=== PATIENT | male | born 1975 | race African-American/Black ===

== ENCOUNTER 2019-09-02 09:56 | Emergency (ER) | payer OTHER ==
[~2019-09-02] VITALS: Ht 188 cm; Wt 90.7 kg
[2019-09-02 10:00] VITALS: BP 152/88
[2019-09-02] MEDS ORDERED: methylPREDNISolone SOD SUCC PF 125 MG/2 ML VIAL. IM ONE (10:15)
[2019-09-02] MEDS ORDERED: IPRATRPIUM/ALBUTEROL 0.5/2.5MG 3 ML NEBU. NEB ONE (10:15)
[2019-09-02] MEDS ORDERED: ALBUTEROL SULFATE 2.5 MG/3 ML NEBU. NEB ONE (10:15)
--- NOTE | 2019-09-02 10:15 | PHYS DOC ---
Past Medical History Past Medical History: Asthma Past Surgical History: No Surgical History Smoking: Less than 1pk/day (vapes daily) Alcohol Use: None Drug Use: None Adult General Chief Complaint Chief Complaint: ASTHMA HPI HPI Patient is a 44 year old AA male, accompanied by his spouse, who presents to the emergency Department today with complaints of asthma for the last 2 weeks. Patient states that with the weather change his asthma has been persistent. He reports increased shortness of breath since last night, he has been using his [id number]'s Pro Air inhaler with no relief in his symptoms. Patient denies any fever. He currently denies any pain, he states there is only tightness in his chest. Review of Systems Review of Systems Constitutional: Denies fever or chills [] Eyes: Denies change in visual acuity, redness, or eye pain [] HENT: Denies nasal congestion or sore throat [] Respiratory: reports wheezing and shortness of breath with non-productive cough Cardiovascular: No additional information not addressed in HPI [] GI: Denies abdominal pain, nausea, vomiting, or diarrhea [] Musculoskeletal: Denies back pain or joint pain [] Integument: Denies rash or skin lesions [] Neurologic: Denies headache, focal weakness or sensory changes [] Complete systems were reviewed and found to be within normal limits, except as documented in this note. Current Medications Current Medications Current Medications Medications (Trade) Dose Ordered Sig/Scarlet Start Time Stop Time Status Last Admin Dose Admin Albuterol Sulfate (Ventolin Neb Soln) 2.5 mg 1X ONCE 09/02/19 10:15 09/02/19 10:17 DC 09/02/19 10:26 2.5 MG Albuterol/ Ipratropium (Duoneb) 3 ml 1X ONCE 09/02/19 10:15 09/02/19 10:17 DC 09/02/19 10:26 3 ML Methylprednisolone Sodium Succinate (SOLU-Medrol 125MG VIAL) 125 mg 1X ONCE 09/02/19 10:15 09/02/19 10:17 DC 09/02/19 10:25 125 MG Allergies Allergies Allergies Coded Allergies Type Severity Reaction Last Updated Verified aspirin Allergy Unknown 11/01/14 No Physical Exam Physical Exam Constitutional: Well developed, well nourished, no acute distress, non-toxic appearance. [] HENT: Normocephalic, atraumatic, bilateral external ears normal, oropharynx moist, no oral exudates, nose normal. [] Eyes: PERRLA, EOMI, conjunctiva normal, no discharge. [] Neck: Normal range of motion, no tenderness, supple, no stridor. [] Cardiovascular:Heart rate regular rhythm, no murmur [] Lungs & Thorax: Bilateral breath sounds inspiratory and expiratory wheezes, diminished in bilateral bases, no retractions, speaking 4-5 words at a time Skin: Warm, dry, no erythema, no rash. [] Back: No tenderness Extremities: No cyanosis, no clubbing, ROM intact, no edema. [] Neurologic: Alert and oriented X 3, no focal deficits noted. [] Psychologic: Affect normal, judgement normal, mood normal. [] Current Patient Data Vital Signs Vital Signs Date Time Temp Pulse Resp B/P (MAP) Pulse Ox O2 Delivery O2 Flow Rate FiO2 09/02/19 10:27 96 Room Air 09/02/19 10:00 98.7 84 18 152/88 (109) 98.7 EKG EKG [] Radiology/Procedures Radiology/Procedures Pt was given a breathing tx in the ER . Lung sounds improved and were clear in all quan after breathing tx. [] Course & Med Decision Making Course & Med Decision Making Pertinent Labs and Imaging studies reviewed. (See chart for details) [] Dragon Disclaimer Dragon Disclaimer This electronic medical record was generated, in whole or in part, using a voice recognition dictation system. Departure Departure Impression: Primary Impression: Asthma attack Disposition: HOME, SELF-CARE Condition: STABLE Referrals: NO PCP (PCP) Patient Instructions: Asthma Prevention-Brief, Asthma, Adult, [id number] Additional Instructions: Download the Allostatix jeff on your phone. Fill the prescriptions and use as dire cted. STOP SMOKING/VAPING. Avoid airway irritants such as smoke, dust, pollen, animal dander, and fragrance. Follow up with your primary care doctor next week, return to the ER if symptoms worsen. Scripts Albuterol Sulfate (Proventil Hfa) 6.7 Gm Hfa.aer.ad 2 PUFF INH PRN Q4-6HRS PRN for SHORTNESS OF BREATH for 30 Days, #1 INHALER 1 Refill Prov: ROGER DELEON PRESIDING STEWARD 09/02/19 Prednisone (PREDNISONE) 50 Mg Tablet 1 TAB PO DAILY, #5 TAB 0 Refills begin taking on 09/03/19 Prov: ROGER DELEON APRN 09/02/19 Problem Qualifiers Primary Impression: Asthma attack Asthma severity: mild Asthma persistence: intermittent Qualified Codes: J45.21 - Mild intermittent asthma with (acute) exacerbation ROGER DELEON APRN Sep 02, 2019 10:15
[2019-09-02] MEDS ORDERED: PRED50TA PO (10:56)
[2019-09-02] MEDS ORDERED: PROVENTIL HFA6.7 G2 INH (10:56)
== END 2019-09-02 11:21 | disposition home or self-care (01) ==
LOC: ER 09:56
DX: J45.21 Mild intermittent asthma with (acute) exacerbation (principal); F17.210 Nicotine dependence, cigarettes, uncomplicated; Z88.6 Allergy status to analgesic agent
CPT/HCPCS: 94640; 99284; J2930; J7613; J7620

== ENCOUNTER 2020-07-28 18:07 | Emergency (ER) | payer OTHER ==
[~2020-07-28] VITALS: Ht 180.3 cm; Wt 100.0 kg
[~2020-07-28 18:07] MED LIST: PRED50TA PO; PROVENTIL HFA6.7 G2 INH
[2020-07-28 18:15] VITALS: BP 169/98
--- NOTE | 2020-07-28 18:33 | PHYS DOC ---
Past Medical History Past Medical History: Asthma Past Surgical History: No Surgical History Smoking Status: Current Every Day Smoker Alcohol Use: None Drug Use: None General Adult EDM: Chief Complaint: ASTHMA HPI: HPI: The history was obtained from the patient. Patient is a 45-year-old male with PMH asthma who presents with a chief complaint of wheezing and shortness of breath. Patient states he has had the symptoms since last night. He states he has been using his inhaler nightly without relief. He does note a dry cough. Denies any objective fevers. Denies chest pain or syncope. States he is never been hospitalized before for his asthma or required ventilator support or BiPAP support. Denies any recent antibiotics or steroids. States this feels similar to previous asthma exacerbations. No other complaints. Review of Systems: Review of Systems: Constitutional: Denies fever or chills. [] Eyes: Denies change in visual acuity. [] HENT: Denies nasal congestion or sore throat. [] Respiratory: Positive for cough, shortness of breath, wheezing Cardiovascular: Denies chest pain or edema. [] GI: Denies abdominal pain, nausea, vomiting, bloody stools or diarrhea. [] : Denies dysuria. [] Musculoskeletal: Denies back pain or joint pain. [] Integument: Denies rash. [] Neurologic: Denies headache, focal weakness or sensory changes. [] Endocrine: Denies polyuria or polydipsia. [] Lymphatic: Denies swollen glands. [] Psychiatric: Denies depression or anxiety. [] Heart Score: Risk Factors: Risk Factors: DM, Current or recent (<one month) smoker, HTN, HLP, family history of CAD, obesity. Risk Scores: Score 0 - 3: 2.5% MACE over next 6 weeks - Discharge Home Score 4 - 6: 20.3% MACE over next 6 weeks - Admit for Clinical Observation Score 7 - 10: 72.7% MACE over next 6 weeks - Early Invasive Strategies Allergies: Allergies: Allergies Coded Allergies Type Severity Reaction Last Updated Verified aspirin Allergy Unknown 11/01/14 No Physical Exam: PE: Constitutional: Well developed, well nourished, no acute distress, non-toxic appearance. [] HENT: Normocephalic, atraumatic, bilateral external ears normal, oropharynx moist, no oral exudates, nose normal. [] Eyes: PERRLA, EOMI, conjunctiva normal, no discharge. [] Neck: Normal range of motion, no tenderness, supple, no stridor. [] Cardiovascular:Heart rate regular rhythm, no murmur [] Lungs & Thorax: Inspiratory and expiratory wheezes noted in the bases bilaterally. Fair aeration. Mild tachypnea. No accessory muscle usage noted. Speaking in full sentences. Abdomen: soft, no tenderness, no masses, no pulsatile masses. [] Skin: Warm, dry, no erythema, no rash. [] Back: No tenderness, no CVA tenderness. [] Extremities: No tenderness, no cyanosis, no clubbing, ROM intact, no edema. [] Neurologic: Alert and oriented X 3, normal motor function, normal sensory function, no focal deficits noted. [] Psychologic: Affect normal, judgement normal, mood normal. [] Current Patient Data: Vital Signs: Vital Signs Date Time Temp Pulse Resp B/P (MAP) Pulse Ox O2 Delivery O2 Flow Rate FiO2 8/30/20 18:15 97.8 67 15 169/98 (121) 100 Room Air 97.8 Vital Signs Date Time Temp Pulse Resp B/P (MAP) Pulse Ox O2 Delivery O2 Flow Rate FiO2 8/30/20 18:15 97.8 67 15 169/98 (121) 100 Room Air 97.8 EKG: EKG: [] Radiology/Procedures: Radiology/Procedures: [] Course & Med Decision Making: Course & Med Decision Making Pertinent Labs and Imaging studies reviewed. (See chart for details) Patient is a 45-year-old male who presents with chief complaint of shortness of breath and wheezing. He notes history of asthma and states this feels similar. Physical exam noted above. Patient was given IV fluids, DuoNeb breathing treatments, and additional albuterol treatments. On reassessment patient's wheezing has resolved. He is not tachypneic. He is speaking in full sentences. He states his breathing feels back to baseline. He was ambulated and showed no signs of hypoxia. Chest x-ray will be deferred as he has no fever or clinical signs of pneumonia. I do feel he is appropriate for discharge home. Will be discharged home with inhaler and short course of steroids. Return precautions discussed and understood. Instructed to follow-up with his primary care physician in the next 2 to 3 days. Stable for discharge home. Gale Disclaimer: Gale Disclaimer: This electronic medical record was generated, in whole or in part, using a voice recognition dictation system. Departure Departure Impression: Primary Impression: Wheeze Disposition: HOME, SELF-CARE Condition: STABLE Referrals: NO PCP (PCP) Patient Instructions: Asthma, Adult Scripts Albuterol Sulfate (Proair Hfa) 8.5 Gm Hfa.aer.ad 2 PUFF IH PRN Q4-6HRS PRN for wheezing for 21 Days, #1 INHALER 0 Refills Prov: BHAVIN THAPA DO 07/28/20 Prednisone (PREDNISONE) 20 Mg Tablet 60 MG PO DAILY for 4 Days, #12 TAB Prov: BHAVIN THAPA DO 07/28/20 Justicifation of Admission Dx: Justifications for Admission: Justification of Admission Dx: N/A BHAVIN THAPA DO Jul 28, 2020 18:33
[2020-07-28] MEDS ORDERED: IV RINGERS,LACTATED 1000ML 1,000 ML IV ONE (18:45)
[2020-07-28] MEDS ORDERED: predniSONE 20 MG TABLET PO ONE (18:45)
[2020-07-28] MEDS ORDERED: IPRATRPIUM/ALBUTEROL 0.5/2.5MG 3 ML NEBU. NEB ONE (18:45)
[2020-07-28] MEDS ORDERED: ALBUTEROL SULFATE 2.5 MG/3 ML NEBU. NEB ONE (19:15)
[2020-07-28] MEDS ORDERED: ALBU2.5V8 IH (20:05)
[2020-07-28] MEDS ORDERED: PRED20TA PO (20:05)
== END 2020-07-28 20:20 | disposition home or self-care (01) ==
LOC: ER 18:07
DX: R06.02 Shortness of breath (principal); R05 Cough; J45.909 Unspecified asthma, uncomplicated; F17.200 Nicotine dependence, unspecified, uncomplicated; Z88.8 Allergy status to other drugs, medicaments and biological substances
CPT/HCPCS: 94640; 96360; 99283; J7120; J7512

== ENCOUNTER 2021-01-10 12:16 | Emergency (ER) | payer OTHER ==
[~2021-01-10] VITALS: Ht 190.5 cm; Wt 100.0 kg
[~2021-01-10 12:16] MED LIST changes: +ALBU2.5V8 IH; +PRED20TA PO
[2021-01-10 12:20] VITALS: BP 131/76
[2021-01-10] MEDS ORDERED: IBUPROFEN 200 MG TABLET. PO ONE (12:45)
[2021-01-10] MEDS ORDERED: ORPHENADRINE CITRATE 60 MG/2 ML VIAL. IM ONE (12:45)
[2021-01-10] MEDS ORDERED: HYDROcodone/APAP 5/325MG 1 TAB TABLET PO ONE (12:45)
--- NOTE | 2021-01-10 12:49 | PHYS DOC ---
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 He states that the forklift rocked to the right and then rock to the left and ended up falling between the trailer and the building. He states that he did not fall out of it and he did not hit his head. He states that he felt fine after but last night after he got home and was relaxing he began having neck and back pain notices more with movement. He states that he took ibuprofen last night. He states he awoke this morning the pain was even worse. He denies numbness or tingling, focal weakness, hitting his head, syncope, dizziness, headache, abdominal pain, nausea, vomiting, vision changes, chest pain, shortness of breath. Patient has a history of asthma and smoking. Patient is rating his pain a 9 out of 10. Review of Systems: Review of Systems: Constitutional: Denies fever or chills. [] Eyes: Denies change in visual acuity. [] HENT: Denies nasal congestion or sore throat. [] Respiratory: Denies cough or shortness of breath. [] Cardiovascular: Denies chest pain or edema. [] GI: Denies abdominal pain, nausea, vomiting, bloody stools or diarrhea. [] : Denies dysuria. [] Musculoskeletal: Cervical, lumbar, thoracic back pain or denies joint pain. [] Integument: Denies rash. [] Neurologic: Denies headache, focal weakness or sensory changes. [] Endocrine: Denies polyuria or polydipsia. [] Lymphatic: Denies swollen glands. [] Psychiatric: Denies depression or anxiety. [] Heart Score: Risk Factors: Risk Factors: DM, Current or recent (<one month) smoker, HTN, HLP, family history of CAD, obesity. Risk Scores: Score 0 - 3: 2.5% MACE over next 6 weeks - Discharge Home Score 4 - 6: 20.3% MACE over next 6 weeks - Admit for Clinical Observation Score 7 - 10: 72.7% MACE over next 6 weeks - Early Invasive Strategies Allergies: Allergies: Allergies Coded Allergies Type Severity Reaction Last Updated Verified aspirin Allergy Unknown 11/01/14 No Physical Exam: PE: Constitutional: Well developed, well nourished, no acute distress, non-toxic appearance. [] HENT: Normocephalic, atraumatic, bilateral external ears normal, oropharynx moist, no oral exudates, nose normal. [] Eyes: PERRLA, EOMI, conjunctiva normal, no discharge. [] Neck: Normal range of motion, no tenderness, supple, no stridor. [] Cardiovascular:Heart rate regular rhythm, no murmur [] Lungs & Thorax: Bilateral breath sounds clear to auscultation [] Abdomen: Bowel sounds normal, soft, no tenderness, no masses, no pulsatile masses. [] Skin: Warm, dry, no erythema, no rash. [] Back: Focal bony cervical, thoracic and lumbar tenderness as well as paraspinal tenderness, no CVA tenderness. [] Extremities: No tenderness, no cyanosis, no clubbing, ROM intact, no edema. [] Neurologic: Alert and oriented X 3, normal motor function, normal sensory function, no focal deficits noted. [] Psychologic: Affect normal, judgement normal, mood normal. [] Current Patient Data: Vital Signs: Vital Signs Date Time Temp Pulse Resp B/P (MAP) Pulse Ox O2 Delivery O2 Flow Rate FiO2 01/10/21 12:20 98.1 86 12 131/76 (94) 97 Room Air 98.1 EKG: EKG: [] Radiology/Procedures: Radiology/Procedures: [] Impression: [facility] [address] [place], [place] [id number] IMAGING REPORT Signed PATIENT: TWAN SALAS WACCOUNT: [id number] : 1975 LOCATION: ER AGE: 45 SEX: M EXAM STATUS: REG ER ORD. PHYSICIAN: TISHA LEWIS APRN REASON: pain, trauma PROCEDURE: CT THORACIC SPINE WO CONTRAST Exam: CT LUMBAR SPINE WO, CT CERVICAL SPINE WO, CT THORACIC SPINE WO Date: 01/10/2021 1:12 PM Indication: pain, trauma Comparison: None. Technique: CT imaging of the cervical, thoracic, and lumbar spine was performed without contrast. Coronal and sagittal reformatted images were performed. One or more of the following dose reduction techniques were utilized: Automated exposure control (AEC), Adjustment of mA and/or kV according to patient size, Use of iterative reconstruction technique such as ASiR, CT scan done according to ALARA and image gently/image wisely. Findings: Cervical: The cervical spine is normally aligned. No acute fracture. Incomplete fusion of the posterior arch of C1.. Mild multilevel degenerative disc height loss. No high-grade spinal canal stenosis or neural foraminal narrowing. The thyroid gland is normal. No cervical lymphadenopathy. The visualized aerodigestive tract is unremarkable. Thoracic: The thoracic spine is normally aligned. No acute fracture. Vertebral body heights are maintained without compression deformity. Multilevel degenerative disc height loss. No aggressive lytic or blastic osseous lesion. No high-grade spinal canal stenosis or neural foraminal narrowing. The visualized lungs are clear. No pleural effusion. The visualized thoracic aorta is normal caliber. Lumbar: The lumbar spine is normally aligned. No acute fracture. Vertebral body heights are maintained without compression deformity. Mild multilevel degenerative disc height loss. No aggressive lytic or blastic osseous lesion. No high grade spinal canal stenosis or neuroforaminal narrowing. No soft tissue abnormality within the visualized abdomen or pelvis. The v isualized abdominal aorta is normal caliber. Impression: No acute osseous abnormality of the cervical, thoracic, or lumbar spine. Electronically signed by: Yulisa Zimmer MD (01/10/2021 2:20 PM) [id number] DICTATED and SIGNED BY: YULISA ZIMMER MD DATE: 01/10/21 [id number] Course & Med Decision Making: Course & Med Decision Making Pertinent Labs and Imaging studies reviewed. (See chart for details) See HPI. Speaks in full clear sentences. Ambulatory with a steady gait. No focal weaknesses. No saddle paresthesia. Patient denies loss of bowel or b ladder. Abdomen is soft and nontender and there is no bruising. Lungs are clear all station all lobes. Patient has focal bony spinal tenderness from cervical spine down to lumbar spine. He also has paraspinal tenderness. He does have range of motion of his neck although he states it is stiff and painful when he goes to rotate at the neck. PERRLA. Moving all extremities normally with a normal strengths. No extremity deformity, joint laxities, abrasions, bruising or lacerations. Skin pink warm and dry. Vital signs within normal limits. [] Gale Disclaimer: Gale Disclaimer: This electronic medical record was generated, in whole or in part, using a voice recognition dictation system. Departure Departure Impression: Primary Impression: Back pain Qualified Codes: M54.9 - Dorsalgia, unspecified Additional Impression: Neck pain Disposition: 01 DC HOME SELF CARE/HOMELESS Condition: STABLE Referrals: NO PCP (PCP) Patient Instructions: Cervical Sprain, [id number], Low Back Sprain with Rehab-SportsMed, Muscle Strain Additional Instructions: Follow-up with primary care provider if needed. Take medications as prescribed and with food. Remember that the muscle relaxer can make you very sleepy. Do not drive or drink alcohol or do any drugs on top of these medications. Try heating pads also Scripts Cyclobenzaprine Hcl (CYCLOBENZAPRINE HCL) 10 Mg Tablet 1 TAB PO TID, #30 TAB Prov: TISHA LEWIS APRN 01/10/21 Ibuprofen (IBUPROFEN) 600 Mg Tablet 600 MG PO PRN Q6HRS PRN for INFLAMMATION, #30 TAB Prov: TISHA LEWIS APRN 01/10/21 TISHA LEWIS APRN Jan 10, 2021 12:49
[2021-01-10 13:41] LABS: BILIRUBIN,URINE NEGATIVE (NEG); CLARITY,URINE CLEAR; COLOR,URINE YELLOW; NITRITE,URINE NEGATIVE (NEG); PROTEIN,URINE NEGATIVE (NEG-TRACE)
[2021-01-10 13:53] LABS: SPERM,URINE PRESENT /HPF
[2021-01-10 13:54] LABS: BACTERIA,URINE 0 /HPF (0-FEW); RBC,URINE 0 /HPF (0-2); WBC,URINE RARE /HPF (0-4)
--- NOTE | 2021-01-10 14:22 | RAD ---
Exam: CT LUMBAR SPINE WO, CT CERVICAL SPINE WO, CT THORACIC SPINE WO Date: 01/10/2021 1:12 PM Indication: pain, trauma Comparison: None. Technique: CT imaging of the cervical, thoracic, and lumbar spine was performed without contrast. Co zane and sagittal reformatted images were performed. One or more of the following dose reduction kelvin hniques were utilized: Automated exposure control (AEC), Adjustment of mA and/or kV according to percy ent size, Use of iterative reconstruction technique such as ASiR, CT scan done according to ALARA and image gently/image wisely. Findings: Cervical: The cervical spine is normally aligned. No acute fracture. Incomplete fusion of the posterior arch of C1.. Mild multilevel degenerative disc height loss. No high-grade spinal canal stenosis or neural foramina l narrowing. The thyroid gland is normal. No cervical lymphadenopathy. The visualized aerodigestive tract is unrem arkable. Thoracic: The thoracic spine is normally aligned. No acute fracture. Vertebral body heights are maintained with out compression deformity. Multilevel degenerative disc height loss. No aggressive lytic or blastic o sseous lesion. No high-grade spinal canal stenosis or neural foraminal narrowing. The visualized lungs are clear. No pleural effusion. The visualized thoracic aorta is normal caliber. Lumbar: The lumbar spine is normally aligned. No acute fracture. Vertebral body heights are maintained withou t compression deformity. Mild multilevel degenerative disc height loss. No aggressive lytic or blasti c osseous lesion. No high grade spinal canal stenosis or neuroforaminal narrowing. No soft tissue abnormality within the visualized abdomen or pelvis. The visualized abdominal aorta is normal caliber. Impression: No acute osseous abnormality of the cervical, thoracic, or lumbar spine. Electronically signed by: Fish Zimmer MD (01/10/2021 2:20 PM) [id number]
[2021-01-10] MEDS ORDERED: IBUP-1007 PO (14:28)
[2021-01-10] MEDS ORDERED: CYCL10TA2 PO (14:28)
== END 2021-01-10 14:42 | disposition home or self-care (01) ==
LOC: ER 12:16
DX: M54.5 Low back pain (principal); M54.2 Cervicalgia; M54.6 Pain in thoracic spine; J45.909 Unspecified asthma, uncomplicated; F17.200 Nicotine dependence, unspecified, uncomplicated; Z88.6 Allergy status to analgesic agent
CPT/HCPCS: 72125; 72128; 72131; 81001; 96372; 99285; J2360